=== PATIENT | male | born 1940 | race Caucasian/White ===

== ENCOUNTER 2018-07-01 04:01 | Emergency (ER) | payer OTHER ==
[~2018-07-01] VITALS: Ht 185.4 cm; Wt 93.2 kg
[2018-07-01] MEDS ORDERED: METOPROLOL TART50 MG PO (04:11)
[2018-07-01] MEDS ORDERED: ELIQUIS5 MG PO (04:12)
[2018-07-01] MEDS ORDERED: MINIPRESS1 MG (04:13)
[2018-07-01] MEDS ORDERED: CARAFATE1 G PO (04:13)
[2018-07-01] MEDS ORDERED: LISINOPRIL10 MG (04:14)
[2018-07-01] MEDS ORDERED: HYTRIN5 MG PO (04:14)
[2018-07-01 04:16] VITALS: Ht 185.4 cm; Wt 93.2 kg
[2018-07-01 04:31] LABS: BASOPHILS 0.3 % (0-2); EOSINOPHILS 2.4 % (0-7); HEMATOCRIT 37.7 % (42.0-54.0); HEMOGLOBIN 12.8 g/dL (13.5-17.5); IMMATURE GRANULOCYTES 0.3 % (0-5); LYMPHOCYTES 13.3 % (15-50); MCH 26.1 pg (26.0-34.0); MCV 76.8 fL (80.0-100.0); MEAN PLATELET VOLUME 9.3 fL (7.4-10.4); MONOCYTES 8.3 % (2-11); NEUTROPHILS 75.4 % (40-80); RBC 4.91 10x6/uL (4.20-6.10); WBC 8.7 10x3/uL (4.8-10.8)
[2018-07-01 04:34] LABS: PLATELET COUNT 280 10x3/uL (130-400)
[2018-07-01 05:02] LABS: INR 1.2 (0.85-1.17); PROTIME 14.7 SECONDS (11.6-15.0)
[2018-07-01 05:03] LABS: APTT 36.4 SECONDS (22.8-39.4)
[2018-07-01 05:18] LABS: ALKALINE PHOSPHATASE 350 U/L (46-116); ALT (SGPT) 37 U/L (10-68); BILIRUBIN - TOTAL 1.15 mg/dL (0.2-1.3); CALC OSMOLALITY 269 mosm/kg (275-300); CALCIUM 9.8 mg/dL (8.5-10.1); CARBON DIOXIDE 27.6 mmol/L (21.0-32.0); CHLORIDE - SERUM 97 mmol/L (98-107); CREATININE - SERUM 0.8 mg/dL (0.6-1.3); GLUCOSE 147 mg/dL (74-106); POTASSIUM - SERUM 3.9 mmol/L (3.5-5.1); PROTEIN - SERUM 8.6 g/dL (6.4-8.2); SODIUM 133 mmol/L (136-145); UREA NITROGEN 16 mg/dL (7-18); eGFR NON AFRICAN AMERICAN > 90 mL/min (90-120)
[2018-07-01 05:29] LABS: AMYLASE - SERUM 36 U/L (25-115); CKMB 0.1 U/L (0.0-3.6); CREATINE KINASE 23 UL (21-232); LIPASE 110 U/L (73-393); MAGNESIUM - SERUM 1.7 mg/dL (1.8-2.4)
[2018-07-01 05:39] LABS: TROPONIN-I < 0.017 ng/mL (0.000-0.060)
[2018-07-01 06:48] LABS: APPEARANCE CLEAR (CLEAR); BILIRUBIN NEGATIVE (NEGATIVE); COLOR YELLOW (YELLOW); GLUCOSE NEGATIVE (NEGATIVE); KETONE NEGATIVE (NEGATIVE); NITRITE NEGATIVE (NEGATIVE); PROTEIN NEGATIVE (NEGATIVE); SPECIFIC GRAVITY 1.015 (1.005-1.020); UROBILINOGEN NORMAL (NORMAL)
[2018-07-01 11:33] VITALS: BP 104/62
== END 2018-07-01 11:35 | disposition other institution (70) ==
LOC: D.ER 04:01
PROVIDERS: Family Medicine
DX: I48.91 Unspecified atrial fibrillation (principal); R10.31 Right lower quadrant pain; C78.7 Secondary malignant neoplasm of liver and intrahepatic bile duct; C25.9 Malignant neoplasm of pancreas, unspecified